=== PATIENT | male | born 1950 | race Caucasian/White ===

== ENCOUNTER 2025-05-20 11:05 | Emergency (ER) | payer BC, OTHER ==
[2025-05-20 12:25] LABS: #Basophils Less than 0.03 10x3/uL (0.0-0.2); #Eosinophils 0.07 10x3/uL (0.0-0.5); #Monocytes 0.49 10x3/uL (0.0-1.1); #Neutrophils 5.06 10x3/uL (1.5-8.4); %Basophils 0.1 % (0.0-2.0); %Eosinophils 1.0 % (0.0-6.0); %Lymphocytes 22.8 % (18.0-47.0); %Monocytes 6.7 % (0.0-10.0); %Neutrophils 69.1 % (40.0-75.0); Hematocrit 42.5 % (38.8-50.0); Hemoglobin 15.1 g/dL (13.5-17.5); Mean Corpuscular Hemoglobin 31.6 pg (27.0-33.0); Mean Corpuscular Volume 88.9 fL (81.2-95.1); Platelet Count 163 10x3/uL (150-450); Red Blood Cell (RBC) Count 4.78 10x6/uL (4.32-5.72); White Blood Cell (WBC) Count 7.32 10x3/uL (3.5-10.5)
[2025-05-20 12:40] LABS: ALT (SGPT) 25 U/L (Less than 45); AST (SGOT) 20 U/L (11-34); Albumin 3.9 g/dL (3.1-4.5); Alkaline Phosphatase 83 U/L (40-110); Anion Gap 11 mmol/L (10-20); BUN (Urea Nitrogen) 12 mg/dL (8.4-25.7); Bilirubin, Total 0.5 mg/dL (0.3-1.2); Calc. Creatinine Clearance 0 mL/min (70-130); Calcium 9.0 mg/dL (7.8-10.44); Carbon Dioxide 25 mmol/L (23-31); Chloride 104 mmol/L (98-107); Globulin 3.1 g/dL (2.4-3.5); Glucose 235 mg/dL (83-110); Potassium 4.3 mmol/L (3.5-5.1); Sodium 136 mmol/L (136-145)
== END 2025-05-20 14:10 | disposition home or self-care (01) ==
LOC: CSHERS 11:05
DX: I10 Essential (primary) hypertension (principal)
CPT/HCPCS: 80053; 85025; 93005; 99284